=== PATIENT | female | born 1995 | race African-American/Black ===

== ENCOUNTER 2021-04-13 16:06 | Emergency (ER) | payer OTHER ==
[2021-04-13 16:23] VITALS: BP 128/78; PULSE 78; TEMP 98; BMI 30.7
[2021-04-13 18:45] LABS: EPI CELLS 13 /uL (0-25.1); HYALINE CASTS 1 /uL (0-3.1); PH,URINE 5.5 (5.0-8.0); URINE APPEARANCE CLEAR; URINE BACTERIA 276 /uL (0-1359); URINE BILIRUBIN NEGATIVE (NEGATIVE); URINE COLOR YELLOW; URINE GLUCOSE (UA) NEGATIVE (NEGATIVE); URINE KETONE TRACE (NEGATIVE); URINE LEUK ESTERASE NEGATIVE (NEGATIVE); URINE NITRITE NEGATIVE (NEGATIVE); URINE PROTEIN TRACE (NEGATIVE); URINE RBC 573 /uL (0-23.9); URINE UROBILINOGEN 0.2 mg/dL (0.2-1.0); URINE WBC 17 /uL (0-25.8)
== END 2021-04-13 20:12 | disposition home or self-care (01) ==
LOC: JERFT 16:06 → JER 16:06 → JERFT 20:12
DX: O20.0 Threatened abortion (principal)
CPT/HCPCS: 36415; 76817-TC; 81003; 84702; 86850; 86900; 86901; 87086; 87491; 87591; 99284-25

== ENCOUNTER 2021-10-05 23:40 | Inpatient (IN) | payer OTHER ==
[2021-10-06] MEDS ORDERED: CITRIC ACID/SODIUM CITRATE 30 ML UNIT-DOSE CUP PO ONE (00:22)
[2021-10-06] MEDS ORDERED: ELECTROLYTE-148 SOLN 500 ML IV ONE (00:22)
[2021-10-06] MEDS ORDERED: TRIAMCINOLONE ACET 40MG/1ML VIAL IM ONE (00:25)
[2021-10-06] MEDS ORDERED: morphine SULFATE (PF) 1 MG/2 ML SYRINGE ONE (00:28)
[2021-10-06] MEDS ORDERED: DEXTROSE 5%-LACTATED RINGERS 1,000 ML IV SCH (00:30)
[2021-10-06] MEDS ORDERED: ELECTROLYTE-148 SOLN 1,000 ML IV SCH (00:30)
[2021-10-06 00:38] VITALS: BMI 40.3
[2021-10-06 00:46] LABS: BASO % 0.4 % (0-2.0); EOS % 1.1 % (0-4.5); HEMATOCRIT 38.1 % (32.4-45.2); HEMOGLOBIN 12.9 GM/dL (10.7-15.3); LYMPH % 21.7 % (8-40); MCH 29.3 pg (25.7-33.7); MCHC 33.8 g/dl (32.0-36.0); MEAN CELL VOLUME 86.7 fl (80-96); MEAN PLT VOLUME 9.6 fl (7.5-11.1); MONO % 9.6 % (3.8-10.2); NEUT % 67.2 % (42.8-82.8); PLATELET COUNT 249 10^3/uL (134-434); WHITE BLOOD COUNT 11.9 K/mm3 (4.0-10.0)
[2021-10-06 00:52] LABS: INR 0.95 (0.83-1.09); PROTHROMBIN TIME (PATIENT) 11.1 SEC (9.7-13.0)
[2021-10-06 00:55] LABS: ACTIVATED PTT 29.8 SECONDS (25.2-36.5)
[2021-10-06 01:17] LABS: CALCIUM 8.3 mg/dL (8.5-10.1)
[2021-10-06 01:18] LABS: BLOOD UREA NITROGEN 6.2 mg/dL (7-18)
[2021-10-06 01:21] LABS: CREATININE 0.7 mg/dL (0.55-1.3)
[2021-10-06 02:13] LABS: HIV INTERPRETATION NEGATIVE (NEGATIVE)
[2021-10-06] MEDS ORDERED: morphine SULFATE/PF 1 MG/2 ML (2cc Syringe - QUVA) EP ONE (02:14)
[2021-10-06] MEDS ORDERED: METHYLERGONOVINE MALEATE 0.2 MG/1 ML AMP IM PRN (03:21)
[2021-10-06] MEDS ORDERED: OXYTOCIN 20 UNITS in 0.9% NS 20 UNIT/1,000 ML INFUS.BAG IV SCH (03:30)
[2021-10-06] MEDS: IBUPROFEN 800 MG/8 ML IJ IVPB PRN ×2 (04:30→13:08)
[2021-10-06] MEDS: ACETAMINOPHEN 325 MG TABLET (FP) PO PRN ×2 (07:12→19:44)
[2021-10-06 09:21] LABS: BASO % 0.5 % (0-2.0); EOS % 0.4 % (0-4.5); HEMATOCRIT 36.2 % (32.4-45.2); HEMOGLOBIN 12.3 GM/dL (10.7-15.3); MCH 29.5 pg (25.7-33.7); MCHC 33.9 g/dl (32.0-36.0); MONO % 9.8 % (3.8-10.2); NEUT % 76.3 % (42.8-82.8); PLATELET COUNT 230 10^3/uL (134-434); RBC 4.16 M/mm3 (3.60-5.2); RDW 12.8 % (11.6-15.6); WHITE BLOOD COUNT 12.8 K/mm3 (4.0-10.0)
[2021-10-06 09:28] LABS: POC NITRAZINE POS
[2021-10-06] MEDS: PRENATAL VITAMINS W/ FOLIC ACID TABLET (FP) PO SCH (11:17)
[2021-10-06] MEDS: IBUPROFEN 600 MG TABLET (FP) PO PRN (19:44)
[2021-10-06] MEDS: SENNOSIDES/DOCUSATE COMBO (SENNA PLUS) TABLET (UD) PO PRN (19:45)
[2021-10-06] MEDS: SIMETHICONE 80 MG TAB.CHEW (FP) PO PRN (19:45)
[2021-10-06] MEDS: oxyCODONE HCL 5 MG TABLET PO PRN (19:45)
[2021-10-07] MEDS ORDERED: BISACODYL 10 MG SUPP.RECT RC PRN (03:22)
[2021-10-07] MEDS: ACETAMINOPHEN 325 MG TABLET (FP) PO PRN (05:55)
[2021-10-07] MEDS: IBUPROFEN 600 MG TABLET (FP) PO PRN ×2 (05:55→18:14)
[2021-10-07] MEDS: oxyCODONE HCL 5 MG TABLET PO PRN ×2 (05:56→16:29)
[2021-10-07] MEDS: SIMETHICONE 80 MG TAB.CHEW (FP) PO PRN ×2 (05:57→16:30)
[2021-10-07] MEDS: PRENATAL VITAMINS W/ FOLIC ACID TABLET (FP) PO SCH (09:36)
[2021-10-08] MEDS: SIMETHICONE 80 MG TAB.CHEW (FP) PO PRN ×2 (00:25→09:23)
[2021-10-08] MEDS: SENNOSIDES/DOCUSATE COMBO (SENNA PLUS) TABLET (UD) PO PRN (00:25)
[2021-10-08] MEDS: oxyCODONE HCL 5 MG TABLET PO PRN ×2 (00:25→09:23)
[2021-10-08] MEDS: PRENATAL VITAMINS W/ FOLIC ACID TABLET (FP) PO SCH (09:23)
[2021-10-08] MEDS: IBUPROFEN 600 MG TABLET (FP) PO PRN (16:22)
[2021-10-09] MEDS: SIMETHICONE 80 MG TAB.CHEW (FP) PO PRN ×2 (00:11→20:12)
[2021-10-09] MEDS: IBUPROFEN 600 MG TABLET (FP) PO PRN ×2 (00:11→20:12)
[2021-10-09] MEDS: SENNOSIDES/DOCUSATE COMBO (SENNA PLUS) TABLET (UD) PO PRN ×2 (00:11→20:12)
[2021-10-09] MEDS: ACETAMINOPHEN 325 MG TABLET (FP) PO PRN (08:24)
[2021-10-09] MEDS: PRENATAL VITAMINS W/ FOLIC ACID TABLET (FP) PO SCH (10:06)
[2021-10-10 08:55] VITALS: BP 130/74; PULSE 97; TEMP 98
[2021-10-10] MEDS: PRENATAL VITAMINS W/ FOLIC ACID TABLET (FP) PO SCH (12:16)
== END 2021-10-10 17:30 | disposition home or self-care (01) | DRG 540 ==
LOC: JLDR 23:40 → J3W 10-06 05:30
PROVIDERS: ADMIT Obstetrics & Gynecology; ATTEND Obstetrics & Gynecology
PROC: 10D00Z1 Extraction of Products of Conception, Low, Open Approach (ICD-10-PCS; principal; 2021-10-06)
DX: O60.14X2 Preterm labor third trimester with preterm delivery third trimester, fetus 2 (principal); O42.913 Preterm premature rupture of membranes, unspecified as to length of time between rupture and onset of labor, third trimester; O32.1XX2 Maternal care for breech presentation, fetus 2; O30.043 Twin pregnancy, dichorionic/diamniotic, third trimester; Z3A.35 35 weeks gestation of pregnancy; Z37.2 Twins, both liveborn
CPT/HCPCS: 36415; 80048; 83986-QW; 85025; 85610; 85730; 86780; 86850; 86900; 86901; 87389; 88307-TC; C9803; U0003; U0005